=== PATIENT | female | born 1985 | race African-American/Black ===

== ENCOUNTER 2019-08-06 18:35 | Emergency (ER) | payer OTHER ==
[~2019-08-06] VITALS: Ht 162.6 cm; Wt 45.5 kg
[2019-08-06 18:55] VITALS: Ht 162.6 cm; Wt 45.5 kg
[2019-08-06 19:23] LABS: BASOPHILS 0.2 % (0-2); EOSINOPHILS 1.2 % (0-7); HEMATOCRIT 34.4 % (36.0-48.0); HEMOGLOBIN 11.6 g/dL (12-16); IMMATURE GRANULOCYTES 0.1 % (0-5); LYMPHOCYTES 10.3 % (15-50); MCH 28.6 pg (26.0-34.0); MCHC 33.7 g/dL (31.0-37.0); MCV 84.9 fL (80.0-100.0); MONOCYTES 8.1 % (2-11); NEUTROPHILS 80.1 % (40-80); PLATELET COUNT 174 10x3/uL (130-400); RBC 4.05 10x6/uL (4.00-5.40); RDW 15.9 % (11.5-14.5); WBC 12.5 10x3/uL (4.8-10.8)
[2019-08-06 19:25] LABS: APPEARANCE CLEAR (CLEAR); BILIRUBIN NEGATIVE (NEGATIVE); COLOR YELLOW (YELLOW); GLUCOSE NEGATIVE (NEGATIVE); KETONE NEGATIVE (NEGATIVE); NITRITE POSITIVE (NEGATIVE); PROTEIN 1+ mg/dL (NEGATIVE); SPECIFIC GRAVITY 1.015 (1.005-1.020); UROBILINOGEN NORMAL (NORMAL)
[2019-08-06 19:26] LABS: BACTERIA MANY /hpf (NONE SEEN); RED CELLS - URINE 0-5 /hpf (0-5)
[2019-08-06 19:27] LABS: HCG URINE NEGATIVE (NEGATIVE)
[2019-08-06 19:37] LABS: ALBUMIN 3.3 g/dL (3.4-5.0); ALKALINE PHOSPHATASE 170 U/L (46-116); ALT (SGPT) 45 U/L (10-68); BILIRUBIN - TOTAL 0.77 mg/dL (0.2-1.3); CALC OSMOLALITY 274 mosm/kg (275-300); CALCIUM 8.8 mg/dL (8.5-10.1); CHLORIDE - SERUM 102 mmol/L (98-107); CREATININE - SERUM 0.7 mg/dL (0.6-1.3); GLUCOSE 71 mg/dL (74-106); POTASSIUM - SERUM 3.4 mmol/L (3.5-5.1); PROTEIN - SERUM 8.1 g/dL (6.4-8.2); SODIUM 139 mmol/L (136-145); UREA NITROGEN 10 mg/dL (7-18); eGFR NON AFRICAN AMERICAN > 90 mL/min (90-120)
[2019-08-06 19:40] LABS: AMYLASE - SERUM 20 U/L (25-115); LIPASE 114 U/L (73-393); TROPONIN-I < 0.017 ng/mL (0.000-0.060)
[2019-08-06] MEDS ORDERED: LEVAQUIN750 MG PO (22:19)
[2019-08-06] MEDS ORDERED: ULTRAM50 MG PO (22:19)
[2019-08-06 22:40] VITALS: BP 118/74
== END 2019-08-06 22:40 | disposition home or self-care (01) ==
LOC: D.ER 18:35
PROVIDERS: Emergency Medicine
DX: N39.0 Urinary tract infection, site not specified (principal); E87.5 Hyperkalemia; N12 Tubulo-interstitial nephritis, not specified as acute or chronic

== ENCOUNTER 2019-08-08 21:43 | Emergency (ER) | payer OTHER ==
[~2019-08-08] VITALS: Ht 162.6 cm; Wt 61.4 kg
[~2019-08-08 21:43] MED LIST: LEVAQUIN750 MG PO; ULTRAM50 MG PO
[2019-08-08 21:57] VITALS: Ht 162.6 cm; Wt 61.4 kg
[2019-08-08] MEDS ORDERED: ACETAMINOPHEN500 M1 PO (21:58)
[2019-08-08] MEDS ORDERED: IBUPROFEN800 MG PO (21:59)
[2019-08-08 22:29] LABS: BASOPHILS 0.2 % (0-2); EOSINOPHILS 1.4 % (0-7); HEMATOCRIT 30.6 % (36.0-48.0); HEMOGLOBIN 10.3 g/dL (12-16); IMMATURE GRANULOCYTES 0.4 % (0-5); LYMPHOCYTES 16.9 % (15-50); MCHC 33.7 g/dL (31.0-37.0); MCV 83.2 fL (80.0-100.0); MEAN PLATELET VOLUME 10.5 fL (7.4-10.4); MONOCYTES 8.8 % (2-11); NEUTROPHILS 72.3 % (40-80); PLATELET COUNT 202 10x3/uL (130-400); RBC 3.68 10x6/uL (4.00-5.40); RDW 15.6 % (11.5-14.5); WBC 10.2 10x3/uL (4.8-10.8)
[2019-08-08 22:32] LABS: APPEARANCE CLEAR (CLEAR); BILIRUBIN NEGATIVE (NEGATIVE); COLOR YELLOW (YELLOW); GLUCOSE NEGATIVE (NEGATIVE); KETONE NEGATIVE (NEGATIVE); NITRITE NEGATIVE (NEGATIVE); PROTEIN NEGATIVE (NEGATIVE); UROBILINOGEN NORMAL (NORMAL)
[2019-08-08 22:41] LABS: ALBUMIN 2.7 g/dL (3.4-5.0); ALKALINE PHOSPHATASE 253 U/L (46-116); ALT (SGPT) 61 U/L (10-68); BILIRUBIN - TOTAL 0.76 mg/dL (0.2-1.3); CALC OSMOLALITY 277 mosm/kg (275-300); CALCIUM 8.5 mg/dL (8.5-10.1); CARBON DIOXIDE 32.4 mmol/L (21.0-32.0); CHLORIDE - SERUM 102 mmol/L (98-107); CREATININE - SERUM 0.8 mg/dL (0.6-1.3); GLUCOSE 81 mg/dL (74-106); POTASSIUM - SERUM 3.1 mmol/L (3.5-5.1); PROTEIN - SERUM 7.4 g/dL (6.4-8.2); SODIUM 141 mmol/L (136-145); UREA NITROGEN 8 mg/dL (7-18); eGFR NON AFRICAN AMERICAN 87 mL/min (90-120)
[2019-08-08 23:34] VITALS: BP 112/70
== END 2019-08-08 23:34 | disposition home or self-care (01) ==
LOC: D.ER 21:43
PROVIDERS: Family Medicine
DX: K59.00 Constipation, unspecified (principal); F17.200 Nicotine dependence, unspecified, uncomplicated

== ENCOUNTER 2019-08-09 03:33 | Emergency (ER) | payer OTHER ==
[~2019-08-09] VITALS: Ht 162.6 cm; Wt 61.4 kg
[~2019-08-09 03:33] MED LIST changes: +ACETAMINOPHEN500 M1 PO; +IBUPROFEN800 MG PO
[2019-08-09 03:37] VITALS: Ht 162.6 cm; Wt 61.4 kg
[2019-08-09 04:54] LABS: BASOPHILS 0.2 % (0-2); EOSINOPHILS 2.1 % (0-7); HEMATOCRIT 31.8 % (36.0-48.0); HEMOGLOBIN 10.7 g/dL (12-16); IMMATURE GRANULOCYTES 0.3 % (0-5); LYMPHOCYTES 21.7 % (15-50); MCH 27.9 pg (26.0-34.0); MCHC 33.6 g/dL (31.0-37.0); MEAN PLATELET VOLUME 11.3 fL (7.4-10.4); MONOCYTES 8.6 % (2-11); NEUTROPHILS 67.1 % (40-80); PLATELET COUNT 239 10x3/uL (130-400); RBC 3.83 10x6/uL (4.00-5.40); RDW 15.8 % (11.5-14.5); WBC 8.6 10x3/uL (4.8-10.8)
[2019-08-09 05:04] LABS: ALBUMIN 2.9 g/dL (3.4-5.0); ALKALINE PHOSPHATASE 267 U/L (46-116); ALT (SGPT) 66 U/L (10-68); AMYLASE - SERUM 23 U/L (25-115); BILIRUBIN - TOTAL 0.76 mg/dL (0.2-1.3); CALC OSMOLALITY 285 mosm/kg (275-300); CALCIUM 8.8 mg/dL (8.5-10.1); CARBON DIOXIDE 34.4 mmol/L (21.0-32.0); CHLORIDE - SERUM 103 mmol/L (98-107); CREATININE - SERUM 0.7 mg/dL (0.6-1.3); LIPASE 118 U/L (73-393); PROTEIN - SERUM 7.8 g/dL (6.4-8.2); SODIUM 145 mmol/L (136-145); UREA NITROGEN 9 mg/dL (7-18); eGFR NON AFRICAN AMERICAN > 90 mL/min (90-120)
[2019-08-09 05:07] LABS: GLUCOSE 63 mg/dL (74-106)
[2019-08-09 08:40] LABS: HCG URINE NEGATIVE (NEGATIVE)
[2019-08-09 13:44] VITALS: BP 126/82
== END 2019-08-09 14:23 | disposition other institution (70) ==
LOC: D.ER 03:33
PROVIDERS: Family Medicine
DX: E87.6 Hypokalemia (principal); N15.1 Renal and perinephric abscess; F17.200 Nicotine dependence, unspecified, uncomplicated